=== PATIENT | female | born 1960 | race Caucasian/White ===

== ENCOUNTER 2018-10-20 08:14 | Outpatient (CLI) | payer BC, SELFPAY ==
[2018-10-20 09:13] LABS: HCT 42.2 % (36.0-46.0); HGB 13.7 g/dL (12.0-15.5); Mean Corp. HGB Concentration 32.5 g/dL (32.0-36.0); Mean Corpuscular Volume 86.1 fL (80-95); Mean Platelet Volume 10.7 fL (8.0-11.0); Platelet Count 253 x1000/uL (130-400); RBC Distribution Width 14.1 % (11.7-14.6); White Blood Cell Count 5.22 k/cumm (4.4-10.8)
[2018-10-20 10:08] LABS: ALT 56 U/L (12-78); AST 21 U/L (15-37); Albumin 3.8 g/dL (3.4-5.0); Alkaline Phosphatase 72 U/L (46-116); Anion Gap 8.9 mmol/L (3-11); BUN 18 mg/dL (7-18); Bilirubin, Total 0.3 mg/dL (0.2-1.0); CO2 27.1 mmol/L (21.0-32.0); Calcium 9.1 mg/dL (8.5-10.1); Calculated LDL 203; Chloride 106 mmol/L (98-107); Cholesterol 281 mg/dL (50-200); Glucose 103 mg/dL (70-100); HDL Cholesterol 47 mg/dL (40-60); Potassium 4.4 mmol/L (3.5-5.1); Sodium 142 mmol/L (136-145); Triglyceride 157 mg/dL (30-150)
== END 2018-10-20 08:34 ==
PROVIDERS: PCP Nurse Practitioner; Visit Provider Nurse Practitioner
DX: E66.9 Obesity, unspecified (principal); E78.5 Hyperlipidemia, unspecified
CPT/HCPCS: 36415; 80053; 80061; 83721; 85027

== ENCOUNTER 2018-10-29 16:48 | Outpatient (REF) | payer BC, SELFPAY ==
--- NOTE | 2018-10-29 16:20 | ENDOMET_PTH ---
PATIENT: Marilyn Macias LOC: [facility] U#:[id number] AGE/SX: 58/F ROOM: RE10/29/[address]: Karely Moore MD : 1960 BED: DIS: 10/29/2018 SPEC #: [id number] RECD: 10/29/18 16:59 STATUS: RACHEL REQ #: [id number] CESIA: 10/29/18 16:[address]: Karely Moore DEPT: Surgical Specimen RECD BY: Aziza Webb ENTERED: 10/29/18 16:59 SP TYPE: Endomet OT DR: Saloni Michael APRN Tissues: 1 - ENDOMETRIUM BX/CURRETTE Procedures: GROSS AND MICRO LEVEL 4 Comments: [id number]
== END 2018-10-29 17:08 ==
LOC: LBN 16:48
PROVIDERS: PCP Nurse Practitioner; Visit Provider Obstetrics & Gynecology
DX: N84.0 Polyp of corpus uteri (principal); N85.8 Other specified noninflammatory disorders of uterus; N95.0 Postmenopausal bleeding
CPT/HCPCS: 88305

== ENCOUNTER 2019-01-20 11:13 | Outpatient (CLI) | payer BC, SELFPAY ==
[2019-01-20 11:51] LABS: Hemoglobin A1C 5.6 % (4.5-6.2)
[2019-01-20 12:23] LABS: HDL Cholesterol 50 mg/dL (40-60); Triglyceride 186 mg/dL (30-150)
[2019-01-20 12:38] LABS: Calculated LDL 198 mg/dL; Cholesterol 285 mg/dL (50-200)
== END 2019-01-20 11:33 ==
PROVIDERS: PCP Nurse Practitioner; Visit Provider Nurse Practitioner
DX: E78.5 Hyperlipidemia, unspecified (principal); E66.9 Obesity, unspecified
CPT/HCPCS: 36415; 80061; 83036

== ENCOUNTER 2019-12-28 02:53 | Outpatient (CLI) | payer BC, SELFPAY ==
[2019-12-28 08:22] LABS: Hemoglobin A1C 5.6 % (3.8-5.6)
[2019-12-28 09:25] LABS: ALT 36 U/L (14-59); AST 14 U/L (15-37); Albumin 4.1 g/dL (3.4-5.0); Alkaline Phosphatase 82 U/L (46-116); Anion Gap 8.5 mmol/L (3-11); BUN 17 mg/dL (7-18); Bilirubin, Total 0.5 mg/dL (0.2-1.0); CO2 28.5 mmol/L (21.0-32.0); CREATININE 0.97 mg/dL (0.55-1.02); Calcium 9.4 mg/dL (8.5-10.1); Calculated LDL 85 mg/dL (<100); Chloride 106 mmol/L (98-107); Cholesterol 164 mg/dL (<200); Estimated GFR 58.78 (mL/min/1.73m2); Glucose 105 mg/dL (74-106); HDL Cholesterol 55 mg/dL (40-60); Potassium 4.4 mmol/L (3.5-5.1); Sodium 143 mmol/L (136-145); Total Protein 7.3 g/dL (6.4-8.2); Triglyceride 120 mg/dL (<150)
== END 2019-12-28 03:13 ==
PROVIDERS: PCP Nurse Practitioner; Visit Provider Nurse Practitioner
DX: E11.9 Type 2 diabetes mellitus without complications (principal); E78.5 Hyperlipidemia, unspecified; R73.01 Impaired fasting glucose; E66.9 Obesity, unspecified
CPT/HCPCS: 36415; 80053; 80061; 83036

== ENCOUNTER 2020-04-04 00:31 | Outpatient (CLI) | payer BC, SELFPAY ==
--- NOTE | 2020-04-04 07:30 | DI.MAMMO_ITS ---
EXAM: MG MAMMO SCREENING CLINICAL HISTORY: screening,Z12.39 TECHNIQUE: Mammograms were interpreted according to the usual protocol including computer analysis w [employer] system, tomosynthesis and C-view imaging. COMPARISON: FINDINGS: The breasts are of moderate density with fairly symmetrical distribution of fibroglandular tissue. N o dominant mass or clumped microcalcification is identified in either breast. The current examinatio n is compared with previous examinations including June 2017 and there has been no gross interval change in appearance in comparison with the prior studies. IMPRESSION: No specific evidence of malignancy at this time. Routine screening examinations are suggested at yea rly intervals in this age group according to the ACS ACR guidelines. BI-RADS Category 1 - Negative Breast Density - Category B - Scattered areas of fibroglandular density
== END 2020-04-04 00:51 ==
PROVIDERS: PCP Nurse Practitioner; Visit Provider Nurse Practitioner
DX: Z12.31 Encounter for screening mammogram for malignant neoplasm of breast (principal)
CPT/HCPCS: 77063; 77067

== ENCOUNTER 2021-01-08 16:24 | Outpatient (REF) | payer BC, SELFPAY ==
--- NOTE | 2021-01-08 16:00 | PAPFT_PTH ---
PATIENT: Marilyn Macias LOC: [facility] U#:[id number] AGE/SX: 60/F ROOM: RE01/08/[address]: Saloni Michael APRN : 1960 BED: DIS: 01/08/2021 SPEC #: [id number] RECD: 01/08/21 17:41 STATUS: RACHEL KNOWLES #: [id number] CESIA: 01/08/21 16:[address]: Saloni Michael [facility]PT[facility] Cytology RECD BY: Aziza Webb Tissues: 1 - CX/ENDOCX FOR PAP SMEARS Procedures: PAP THIN PREP/UVM Screening HPV DNA PROBE Comments: [id number]
== END 2021-01-08 16:25 | disposition home or self-care (01) ==
LOC: LBN 16:24
PROVIDERS: PCP Nurse Practitioner; Visit Provider Nurse Practitioner
DX: Z12.4 Encounter for screening for malignant neoplasm of cervix (principal); Z11.51 Encounter for screening for human papillomavirus (HPV)
CPT/HCPCS: 88142; 87624

== ENCOUNTER 2021-01-15 04:39 | Outpatient (CLI) | payer BC, SELFPAY ==
[2021-01-15 08:04] LABS: Hemoglobin A1C 5.7 % (<5.7)
[2021-01-15 10:25] LABS: ALT 47 U/L (14-59); AST 23 U/L (15-37); Alkaline Phosphatase 82 U/L (46-116); Anion Gap 11.1 mmol/L (3-11); BUN 21 mg/dL (7-18); Bilirubin, Total 0.4 mg/dL (0.2-1.0); CO2 25.9 mmol/L (21.0-32.0); Calcium 9.2 mg/dL (8.5-10.1); Calculated LDL 88 mg/dL (<100); Chloride 108 mmol/L (98-107); Cholesterol 180 mg/dL (<200); Estimated GFR 56.56 (mL/min/1.73m2); Glucose 96 mg/dL (74-106); HDL Cholesterol 57 mg/dL (40-60); Potassium 4.1 mmol/L (3.5-5.1); Sodium 145 mmol/L (136-145); Total Protein 7.1 g/dL (6.4-8.2); Triglyceride 175 mg/dL (<150)
== END 2021-01-15 04:40 | disposition home or self-care (01) ==
LOC: LBO 04:40
PROVIDERS: PCP Nurse Practitioner; Visit Provider Nurse Practitioner
DX: R73.01 Impaired fasting glucose (principal); E78.5 Hyperlipidemia, unspecified
CPT/HCPCS: 36415; 80053; 80061; 83036

== ENCOUNTER 2021-04-10 00:21 | Outpatient (CLI) | payer BC, SELFPAY ==
--- NOTE | 2021-04-10 07:40 | DI.MAMMO_ITS ---
Exam(s) MAMMO SCREENING EXAM: MAMMO SCREENING CLINICAL HISTORY: screening,z12.39 TECHNIQUE: Bilateral full field digital CC and MLO mammographic images were obtained with 3D tomosyn thesis and utilizing computer aided detection (CAD). COMPARISON: Available for comparison. FINDINGS: Masses/Architectural Distortion: None seen. Microcalcifications: No suspicious pleomorphic-type are seen. Skin Thickening/Nipple Retraction: None. IMPRESSION: 1. No significant interval change with no specific features of malignancy noted. 2. Unless there is more urgent need, screening mammography is recommended, as per [employer] [place] [employer] guidelines. BI-RADS Category 1 - Negative Breast Density - Category B - Scattered areas of fibroglandular density Breast density category C or D implies that the patient has dense breast tissue. Dense breast tissue is very common and is not abnormal but dense breast tissue can make it harder to find cancer on a ma mmogram. Also, dense breast tissue may increase their breast cancer risk. This information about the result of the mammogram report was provided to the patient to raise their awareness. Use this report when you speak with the patient about their risks for breast cancer, which includes their family hist ory. At that time, you may recommend for more screening tests (Ultrasound or MRI) as they might be us eful based on their risk. A negative radiographic report should not delay biopsy if a dominant or clinically suspicious mass is present. Up to ten percent of cancers are not identified on mammography. A negative report may reinforce clinical impression. Adenosis and dense breasts may obscure an underlying neoplasm. False positive reports average 6 to 10%. Patient will receive a letter notifying them of these results.
== END 2021-04-10 00:41 ==
PROVIDERS: PCP Nurse Practitioner; Visit Provider Nurse Practitioner
DX: Z12.31 Encounter for screening mammogram for malignant neoplasm of breast (principal)
CPT/HCPCS: 77063; 77067

== ENCOUNTER 2022-01-24 01:52 | Outpatient (CLI) | payer BC, SELFPAY ==
[2022-01-24 08:45] LABS: ALT 31 U/L (14-59); AST 13 U/L (15-37); Albumin 3.8 g/dL (3.4-5.0); Alkaline Phosphatase 86 U/L (46-116); Anion Gap 8.7 mmol/L (3-11); BUN 18 mg/dL (7-18); Bilirubin, Total 0.3 mg/dL (0.2-1.0); CO2 29.3 mmol/L (21.0-32.0); Calcium 9.5 mg/dL (8.5-10.1); Calculated LDL 80 mg/dL (<100); Chloride 105 mmol/L (98-107); Cholesterol 150 mg/dL (<200); Estimated GFR 64.09 (mL/min/1.73m2); Glucose 108 mg/dL (74-106); HDL Cholesterol 49 mg/dL (40-60); Sodium 143 mmol/L (136-145); Total Protein 7.7 g/dL (6.4-8.2); Triglyceride 107 mg/dL (<150)
== END 2022-01-24 01:53 | disposition home or self-care (01) ==
PROVIDERS: PCP Nurse Practitioner; Visit Provider Nurse Practitioner
DX: E78.5 Hyperlipidemia, unspecified (principal)
CPT/HCPCS: 36415; 80053; 80061

== ENCOUNTER 2022-03-10 20:49 | Emergency (ER) | payer BC, SELFPAY ==
--- NOTE | 2022-03-10 21:15 | DI.CT_ITS ---
Exam(s) CT ABDOMEN PELVIS W EXAM: CT ABDOMEN PELVIS W CLINICAL HISTORY: epigastric pain and discomfort. TECHNIQUE: Imaging Protocol: Axial computed tomography images with coronal and sagittal reformatted images were created and reviewed CONTRAST MATERIAL: Intravenous: Omnipaque 100cc Oral: None COMPARISON: No exams were available for comparison FINDINGS: VISUALIZED LUNG BASES: No nodules nor pleural effusions evident. ABDOMEN: There is no ascites. LIVER: There is a small 5 millimeter hypodensity in the right hepatic lobe which is probably a benign cyst or hemangioma. Another similar finding is seen in the left lobe. There are no ominous hepatic lesions identified. GALLBLADDER/BILIARY: No obvious gallbladder pathology. CBD is not dilated. PANCREAS: No evidence of pancreatic mass nor dilatation of the pancreatic duct. SPLEEN: Spleen is not enlarged. No obvious intrasplenic lesions. Splenic and portal veins are paten t. ADRENALS: There are no significant adrenal masses. KIDNEYS:No cysts evident. No solid renal masses. No calculi nor hydronephrosis.. ABDOMINAL AORTA: Abdominal aorta is not enlarged. LYMPH NODES:There is no retroperitoneal nor paraaortic adenopathy. ABDOMINAL WALL: No evidence of significant anterior abdominal wall nor inguinal hernia. GI: There is no evidence of bowel obstruction, free air, nor abscess. PELVIS: GI: No evidence of appendicitis.Sigmoid diverticulosis. No obvious acute diverticulitis. No free fl uid. LYMPH NODES: There is no intrapelvic nor inguinal adenopathy. REPRODUCTIVE: Multiple calcified uterine fibroids noted. The largest of these is located in the ante rior myometrium and measures approximately 4 by 3 by 4 cm. This indents the urinary bladder. No obv ious ovarian masses evident. There is no free fluid in the pelvis. URINARY BLADDER: No calculi nor obvious masses evident OSSEOUS: No significant osseous lesions. IMPRESSION: 1. No acute findings in the abdomen and pelvis. 2. Sigmoid diverticulosis without evidence of obvious acute diverticulitis. 3. There are multiple partially calcified uterine fibroids. The largest measures 4 x 3 x 4 cm. Ther e are no abnormal adnexal masses. No free fluid. 4. Two small benign-appearing hypodensities in the liver both measuring less than 1 cm and most proba suman representing benign cysts or hemangiomas. RADIATION DOSE DELIVERED: Total DLP DATA REPOSITORY: All CT scans at this facility are submitted to the National Radiology Data Registry (NRDR) Dose Index Registry (DIR) with the [employer] (ACR). RADIATION OPTIMIZATION: All CT scans at this facility use at least one of these dose optimization te chniques: automated exposure control; mA and/or kV adjustment per patient size (includes targeted exa ms where dose is matched to clinical indication); or iterative reconstruction.
--- NOTE | 2022-03-10 21:15 | RT.EKG_ITS ---
APPROVED REPORT Exam: Resting ECG Reason for Exam: chest pain Patient Location: E HR:72 bpm ECG Measurements Heart Rate 72 AXIS DC 151 P 61 QRSd 105 QRS 63 QT 421 T 31 QTc 459 Conclusion Sinus rhythm...normal P axis, V-rate 60- 99 Physician: Sinus rhythm, rate 72, no significant ST elevation or depression. No STEMI.
--- NOTE | 2022-03-10 21:19 | W.ED.GENAD ---
Discharge Plan Disposition Patient Disposition: STILL A PATIENT Condition: Good Discharge Details Chief Complaint: Abd Prob Clinical Impression: Acute epigastric pain Primary Care Provider: Saloni Michael ED Provider: Unruly Jimenez Home Meds and New Rx's Prescriptions: No Action atorvastatin 20 mg tablet 20 mg PO QHS Qty: 90 3RF omeprazole 20 mg tablet,delayed release (DR/EC) 20 mg PO q other day Qty: 45 3RF scopolamine base [Transderm-Scop] 1 mg over 3 days patch 3 day 1 patch TD Q3D PRN (Reason: motion sickness) Qty: 4 0RF calcium carbonate-vitamin D3 [Calcium 500 With D] 1 EACH tablet 1 ea PO DAILY Medical Decision Making 62-year-old female with a past medical history of high cholesterol, obesity, postmenopausal bleeding, presents today for evaluation of epigastric pain. Patient states that at 2 PM this afternoon she had epigastric achiness and discomfort with associated nausea. The pain comes and goes in severity, at its worst is sharp and stabbing and then it becomes mildly achy. She does have reflux, and states that this feels different. She does admit to some mild lower chest tightness with the pain. She denies any diarrhea. She did have some pizza leftovers, itself members but did not have any significant abnormality or problems after this. No other complaints at this time. She does have a history of previous right upper quadrant pain and also states that this is notably different than that. Physical exam demonstrates well-appearing female, mild epigastric achiness. EKG shows no evidence of STEMI. Symptoms concerning for pancreatitis, gastric irritation, gallbladder pathology, or potential less likely cardiac etiology. Symptoms appear clinically inconsistent with dissection or AAA. We will get a CT scan, gently rehydrate, treat the patient's pain, monitor closely and reassess. Patient will be signed out to my colleague Dr. Luis Daniel Solis for follow-up on labs and imaging. EKG 21: 27 Sinus rhythm, rate 72, no significant ST elevation or depression. No STEMI. HPI General Date/Time Provider Initiated Documentation: 03/10/22 21:07. HPI Narrative: 62-year-old female with a past medical history of high cholesterol, obesity, postmenopausal bleeding, presents today for evaluation of epigastric pain. Patient states that at 2 PM this afternoon she had epigastric achiness and discomfort with associated nausea. The pain comes and goes in severity, at its worst is sharp and stabbing and then it becomes mildly achy. She does have reflux, and states that this feels different. She does admit to some mild lower chest tightness with the pain. She denies any diarrhea. She did have some pizza leftovers, itself members but did not have any significant abnormality or problems after this. No other complaints at this time. She does have a history of previous right upper quadrant pain and also states that this is notably different than that. Related Data Home Medications Medication Instructions Recorded Confirmed calcium carbonate 500 mg-vitamin 1 ea PO DAILY 01/23/17 03/10/22 D3 10 mcg (400 unit) tablet (Calcium 500 With D) scopolamine base 1 mg over 3 days 1 patch transdermal Q3D PRN motion 04/29/19 03/10/22 transdermal patch (Transderm-Scop) sickness #4 ea atorvastatin 20 mg tablet 20 mg PO QHS #90 tabs 01/16/22 03/10/22 omeprazole 20 mg tablet,delayed 20 mg PO q other day #45 tab-caps 01/16/22 03/10/22 release Previous Rx's Medication Instructions Recorded scopolamine base 1 mg over 3 days 1 patch transdermal Q3D PRN motion 04/29/19 transdermal patch (Transderm-Scop) sickness #4 ea atorvastatin 20 mg tablet 20 mg PO QHS #90 tabs 01/16/22 omeprazole 20 mg tablet,delayed 20 mg PO q other day #45 tab-caps 01/16/22 release Allergies Allergy/AdvReac Type Severity Reaction Status Date / Time shellfish derived Allergy Mild Verified 03/10/22 21:31 Review of Systems All systems reviewed & are unremarkable except as noted in HPI and below PFSH All Active Problems (Updated 03/10/22 @ 22:27 by Unruly Jimenez DO) Acute epigastric pain (Acute) Routine gynecological examination (Acute) Routine general medical examination at a health care facility (Acute) IFG (impaired fasting glucose) (Acute) Hyperlipidemia (Acute) Postmenopausal bleeding (Acute) Counseling on health promotion and disease prevention (Acute) Obesity (Chronic) Seborrheic keratoses (Chronic) Surgical History Colonoscopy w/ BX (11/12/16) EGD w/ bx (08/18/16) Ligation of fallopian tube Family History Mother Essential hypertension High cholesterol Stroke Maternal Grandmother Neoplasm GI Father , cirrhosis at age 52. No problems noted. Social History Smoking/Tobacco Use Status: Former Tobacco Use tobacco type: cigarettes Quit Date: 09/09/07 Pack-years: 33 Tobacco: How many years used: 33 Smoking risk assessment performed?: Yes Alcohol Intake: current Alcohol Intake frequency: holidays/special occasions only Drug use: Never Substance use type: does not use Adopted: No Caregiver/Support person: No Foster care: No Household members: spouse Housing: house Number of Children: 2 number of grandchildren: 8 Communication Needs: Corrective Lenses Education Level: college Do you need help understanding health information?: Never current occupation: associate quality engineer Pets and animals: Yes Pets and animals: cat(s) and dog(s) Sexually active: Yes Do you think of yourself as: straight/heterosexual Current gender identity: female What is your relationship status?: How often do you talk on the phone with friends or family?: three or more times per week How often do you get together with friends or relatives?: once per week Do you belong to any clubs or organized social groups?: no Panel score (0-1 are the most socially isolated patients): 2 What type of physical activity do you participate in: walking, regular exercise and additional Details: elliptical Duration: 15-30 minutes/day Frequency: 3-4 times per week Hannah/Hinduism: Voodoo Special hannah needs: No Seatbelt use: always Helmet use: Yes Drive intox or ride w/intox chuck wagon driver: No Working smoke detector in home: Yes Fire extinguisher in home: Yes Carbon monox detector in home: No Do you feel safe at home: Yes Do you feel safe in your relationship?: Yes Exam Narrative Exam Narrative: 1.Const: Well-nourished, Well-developed, appearing stated age 2.Eyes: PERRL, no conjunctival injection, and symmetrical lids. 3.ENT: Atraumatic external nose and ears. Moist MM. Neck: Symmetric, trachea midline, No thyromegaly. 4.CVS: +S1/S2, No murmurs or gallops. Peripheral pulses 2+ and equal in all extremities. Brisk capillary refill in all extremities. 5.RESP: Unlabored respiratory effort. Clear to auscultation bilaterally. No wheezes rales or rhonchi 6.GI: Soft,Nondistended, No hepatosplenomegaly. No guarding or rebound. Mild epigastric tenderness. No pain at McBurney's point. Negative Coronado sign. 7.MSK: Normocephalic/Atraumatic, Extremities w/o deformity or ttp No cyanosis or clubbing, Normal movement of all extremities 8.Skin: Warm, Dry. No rashes or lesions. 9.Neuro: armorer technician II-XII grossly intact. Sensation grossly intact, no focal neurologic deficits. 10.Psych: (AAO) x3. Appropriate mood and affect
[2022-03-10 21:29] VITALS: BP 146/61; PULSE 70; RESP 22; TEMP 37; O2SAT 98
[2022-03-10 21:56] LABS: Abs Immature Grans 0.03 10^3/uL (0.0-0.06); Absolute Basophil Count 0.05 10^3/uL (0.0-0.2); Absolute Eosinophil Count 0.06 10^3/uL (0.0-0.7); Absolute Monocyte Count 0.86 10^3/uL (0.1-0.8); Absolute Neutrophil Count 8.02 10^3/uL (1.2-6.7); Basophils % 0.4; Eosinophils % 0.5; HCT 41.4 % (36.0-46.0); HGB 13.3 g/dL (11.2-15.7); Immature Grans % 0.3; Lymphocytes % 21.2; MCH 27.9 pg (27.0-33.0); MCHC 32.1 % (32.0-36.0); MCV 87 fL (80-95); MPV 10.2 fL (8.0-11.0); Monocytes % 7.5; Neutrophils % 70.1; Platelet Count 226 10^3/uL (130-400); RBC 4.77 10^6/uL (3.93-5.22); RDW 13.3 % (11.7-14.6); RDW-SD 42.2 fL; WBC 11.44 10^3/uL (4.4-10.8)
[2022-03-10 21:57] LABS: Absolute Lymphocyte Count 2.43 10^3/uL (1.2-3.4)
[2022-03-10 22:24] LABS: ALT 33 U/L (14-59); AST 17 U/L (15-37); Alkaline Phosphatase 80 U/L (46-116); Anion Gap 6.1 mmol/L (3-11); BUN 18 mg/dL (7-18); Bilirubin, Total 0.5 mg/dL (0.2-1.0); CO2 29.9 mmol/L (21.0-32.0); Calcium 9.3 mg/dL (8.5-10.1); Chloride 104 mmol/L (98-107); Glucose 97 mg/dL (74-106); Lipase 113 U/L (73-393); NT-proBNP 32 pg/mL (<300); Potassium 3.9 mmol/L (3.5-5.1); Sodium 140 mmol/L (136-145); Total Protein 7.7 g/dL (6.4-8.2); Troponin I < 50 ng/L (<or=60)
[2022-03-10] MEDS: Omnipaque 350 MG/ML 100 ML BTL IJ (22:46)
[2022-03-10] MEDS: Normal Saline Flush 10 ML SYR IVP (22:47)
[2022-03-10] MEDS: Normal Saline - Diluent 50 ML VIAL IV (22:57)
[2022-03-10] MEDS: Mylanta Suspension 30 ML CUP (23:16)
--- NOTE | 2022-03-10 23:23 | DI.VRAD_ITS ---
PROCEDURE INFORMATION: Exam: CT Abdomen And Pelvis With Contrast Exam date and time: 03/10/2022 10:42 PM Age: 62 years old Clinical indication: Abdominal pain; Prior surgery; Surgery date: 6+ months; Surgery type: Tubal ligation many years ago; Patient HX: Epigastric pain/discomfort, cramping, and constipation TECHNIQUE: Imaging protocol: Computed tomography of the abdomen and pelvis with contrast. Radiation optimization: All CT scans at this facility use at least one of these dose optimization techniques: automated exposure control; mA and/or kV adjustment per patient size (includes targeted exams where dose is matched to clinical indication); or iterative reconstruction. Contrast material: OMNIPAQUE 350; Contrast volume: 100 ml; Contrast route: INTRAVENOUS (IV); COMPARISON: US ABDOMEN 01/24/2022 7:13 AM FINDINGS: Diaphragm: Findings suggest a tiny sliding hiatal hernia. Liver: Findings suggest mild hepatic steatosis. Gallbladder and bile ducts: Normal. No calcified stones. No ductal dilation. Pancreas: Normal. No ductal dilation. Spleen: Normal. No splenomegaly. Adrenal glands: Normal. No mass. Kidneys and ureters: Normal. No hydronephrosis. Stomach and bowel: There is sigmoid diverticulosis without evidence for acute diverticulitis. There is no evidence of small or large bowel inflammation. There is no evidence for bowel obstruction. Appendix: No evidence of appendicitis. Intraperitoneal space: There is no evidence of free intraperitoneal fluid. There is no free intraperitoneal air. Vasculature: The aorta and iliac arteries demonstrate mild atherosclerotic calcification without aneurysm formation. Lymph nodes: Unremarkable. No enlarged lymph nodes. Urinary bladder: Unremarkable as visualized. Reproductive: There are a few partially calcified uterine lesions, the largest measuring 3.5 x 3.8 cm, suggesting subserosal fibroids. Bones/joints: There is multilevel [id number] facet arthrosis the lower lumbar spine. No acute fractures are identified. There is multilevel mild spondylosis of the lower thoracic spine. Soft tissues: Unremarkable. IMPRESSION: 1. No acute process within the abdomen or pelvis identified. 2. Sigmoid diverticulosis without evidence for acute diverticulitis. 3. Uterine fibroids, as described above. Dictated and Authenticated by: Huber Chirinos MD. Ordering:VERNON Tolliver MD
[2022-03-11 00:28] LABS: Troponin I < 50 ng/L (<or=60)
--- NOTE | 2022-03-11 00:31 | W.EDPROG ---
Date of service: 03/11/22 Time of Service: 00:31 Medical Decision Making Received signout from Dr. Jimenez. Please see his note regarding details of initial presentation, exam and plan of care. Patient improved following medications. Her CT scan was unremarkable. She was observed and repeat troponin obtained and negative. Will increase the patient's antacid regimen at home. She is stable and improved at this time. Sign Out Sign Out Data: Sign Out Comment: Epigastric pain and chest tightness. Follow-up on repeat troponin, CT scan and reassessment Last updated by Unruly Jimenez DO at 03/10/22 22:28 Discharge Plan Disposition Patient Disposition: HOME Condition: Good Discharge Details Clinical Impression: Acute epigastric pain Primary Care Provider: Saloni Michael ED Provider: Luis Daniel Solis Home Meds and New Rx's Prescriptions: Continued atorvastatin 20 mg tablet 20 mg PO QHS Qty: 90 3RF omeprazole 20 mg tablet,delayed release (DR/EC) 20 mg PO q other day Qty: 45 3RF scopolamine base [Transderm-Scop] 1 mg over 3 days patch 3 day 1 patch TD Q3D PRN (Reason: motion sickness) Qty: 4 0RF calcium carbonate-vitamin D3 [Calcium 500 With D] 1 EACH tablet 1 ea PO DAILY Discharge Instructions Instructions: Abdominal Pain (ED) Additional Instructions: Please take your omeprazole once daily for the next 7 to 10 days time and then return to every other day dosing. May add daily Tums or Mylanta for 1 week. These can turn the stool black at times. Home to rest this evening. Continue all routine medications. Return to the ER for any acute concern.
[2022-03-11 00:41] VITALS: BP 141/79; PULSE 91; RESP 20; O2SAT 98
== END 2022-03-11 00:42 | disposition home or self-care (01) ==
PROVIDERS: Student in an Organized Health Care Education/Training Program; Emergency Provider Emergency Medicine; PCP Nurse Practitioner
DX: R10.13 Epigastric pain (principal); R07.9 Chest pain, unspecified; R11.0 Nausea
CPT/HCPCS: 80053; 83690; 93005; 99285; 74177; 83880; 84484; 85025; 93010; 99284; J3490

== ENCOUNTER → 2023-02-06 02:22 | Outpatient (CLI) | payer BC, SELFPAY ==
--- NOTE | 2023-02-06 06:45 | DI.CTLCSR_ITS ---
Exam(s) CT CHEST LUNG CANCER SCREEN EXAM: CT CHEST LUNG CANCER SCREEN CLINICAL HISTORY: Screening for lung cancer,former smoker, z87.891 TECHNIQUE: Imaging Protocol: Axial computed tomography images with coronal and sagittal reformatted images were created and reviewed COMPARISON: CT CT CHEST LUNG CANCER SCREEN from 01/24/2022 FINDINGS: Tracheobronchial tree: Patent where visualized. Pulmonary parenchyma: No consolidation or dominant measurable mass. No architectural distortion. Lung Nodules: There is a stable 4 mm nodule in the periphery of the right lower lobe. It is pleural based. No new pulmonary nodules are present. Mediastinum and Michela: No dominant adenopathy or fluid collection. The esophagus is unremarkable. Thyroid gland: Unremarkable. Lymph nodes: Unremarkable. Pleura: No effusion or pneumothorax. Heart: The heart is not dilated. No coronary artery calcifications are seen. No pericardial effusion . Aorta: Thoracic aorta non-dilated.Mild atherosclerosis. Upper abdomen: There is fatty infiltration of the liver. Soft Tissues: Unremarkable. Bones: Within normal limits. IMPRESSION: Stable right lower lobe pulmonary nodule. Lung RADS Cat 2 - Benign Appearance / Behavior: Nodules with a very low likelihood of becoming a clin ically active cancer due to size or lack of growth Lung-RADS 1.0 CATEGORIES: Category 0 - Prior chest CT exam(s) being located for comparison. Category 1 - Annual screening in 12 months. No nodules or definitely benign nodules. Category 2 - Annual screening in 12 months. Benign appearance. Nodules with low likelihood of becomin g active cancer. Category 3 - 6-month follow-up. Probably benign. Short-term follow-up suggested. Nodules with low lik elihood of becoming active cancer. Category 4A - 3-month follow-up and CT/PET if >8 mm in size. Suspicious finding. Findings which requi re additional testing. Category 4B - Findings which require additional testing and tissue sampling. Suspicious finding. Category 4X - Category 3 or 4 nodules with additional features or imaging findings that increases the suspicion of malignancy. Modifier S- Potentially clinically significant finding. (Non lung cancer) RADIATION DOSE DELIVERED: 68.25mGy.cm Total DLP 68.25mGy.cmTotal DLP DATA REPOSITORY: All CT scans at this facility are submitted to the National Radiology Data Registry (NRDR) Dose Index Registry (DIR) with the [employer] (ACR). RADIATION OPTIMIZATION: All CT scans at this facility use at least one of these dose optimization te chniques: automated exposure control; mA and/or kV adjustment per patient size (includes targeted exa ms where dose is matched to clinical indication); or iterative reconstruction.
--- NOTE | 2023-02-06 07:50 | DI.MAMMO_ITS ---
Exam(s) MAMMO SCREENING EXAM: MAMMO SCREENING CLINICAL HISTORY: screening,z12.39 TECHNIQUE: Bilateral full field digital CC and MLO mammographic images were obtained with 3D tomosyn thesis and utilizing computer aided detection (CAD). COMPARISON: Available for comparison. FINDINGS: Masses/Architectural Distortion: There is a stable nodule in the central left breast on the CC view. No suspicious nodules or areas of architectural distortion are seen. Microcalcifications: No suspicious pleomorphic-type are seen. Skin Thickening/Nipple Retraction: None. IMPRESSION: 1. No significant interval change with no specific features of malignancy noted. 2. Unless there is more urgent need, screening mammography is recommended, as per [place] [employer] guidelines. BI-RADS Category 1 - Negative Breast Density - Category B - Scattered areas of fibroglandular density Breast density category C or D implies that the patient has dense breast tissue. Dense breast tissue is very common and is not abnormal but dense breast tissue can make it harder to find cancer on a ma mmogram. Also, dense breast tissue may increase their breast cancer risk. This information about the result of the mammogram report was provided to the patient to raise their awareness. Use this report when you speak with the patient about their risks for breast cancer, which includes their family hist ory. At that time, you may recommend for more screening tests (Ultrasound or MRI) as they might be us eful based on their risk. A negative radiographic report should not delay biopsy if a dominant or clinically suspicious mass is present. Up to ten percent of cancers are not identified on mammography. A negative report may reinforce clinical impression. Adenosis and dense breasts may obscure an underlying neoplasm. False positive reports average 6 to 10%. Patient will receive a letter notifying them of these results.
== END ==
PROVIDERS: PCP Nurse Practitioner; Visit Provider Nurse Practitioner
DX: Z12.31 Encounter for screening mammogram for malignant neoplasm of breast (principal); Z87.891 Personal history of nicotine dependence; Z12.2 Encounter for screening for malignant neoplasm of respiratory organs; R91.1 Solitary pulmonary nodule
CPT/HCPCS: 71271; 77063; 77067

== ENCOUNTER 2023-02-06 03:27 | Outpatient (CLI) | payer BC, SELFPAY ==
[2023-02-06 08:03] LABS: Abs Immature Grans 0.02 10^3/uL (0.0-0.06); Absolute Basophil Count 0.07 10^3/uL (0.0-0.2); Absolute Eosinophil Count 0.09 10^3/uL (0.0-0.7); Absolute Lymphocyte Count 2.14 10^3/uL (1.2-3.4); Absolute Monocyte Count 0.46 10^3/uL (0.1-0.8); Absolute Neutrophil Count 2.66 10^3/uL (1.2-6.7); Basophils % 1.3; Eosinophils % 1.7; HCT 41.9 % (36.0-46.0); HGB 13.3 g/dL (11.2-15.7); Immature Grans % 0.4; Lymphocytes % 39.3; MCHC 31.7 % (32.0-36.0); MCV 85 fL (80-95); MPV 9.8 fL (8.0-11.0); Monocytes % 8.5; Neutrophils % 48.8; Platelet Count 274 10^3/uL (130-400); RBC 4.93 10^6/uL (3.93-5.22); RDW 13.4 % (11.7-14.6); RDW-SD 41.6 fL; WBC 5.44 10^3/uL (4.4-10.8)
[2023-02-06 08:35] LABS: Hemoglobin A1C 5.7 % (<5.7)
[2023-02-06 09:01] LABS: ALT 49 U/L (14-59); AST 38 U/L (15-37); Alkaline Phosphatase 81 U/L (46-116); Anion Gap 7.5 mmol/L (3-11); BUN 17 mg/dL (7-18); Bilirubin, Total 0.4 mg/dL (0.2-1.0); CO2 29.5 mmol/L (21.0-32.0); Calcium 9.6 mg/dL (8.5-10.1); Calculated LDL 206 mg/dL (<100); Chloride 104 mmol/L (98-107); Cholesterol 287 mg/dL (<200); Glucose 109 mg/dL (74-106); HDL Cholesterol 50 mg/dL (40-60); Sodium 141 mmol/L (136-145); Triglyceride 155 mg/dL (<150)
== END 2023-02-06 03:28 | disposition home or self-care (01) ==
LOC: LBO 03:27
PROVIDERS: PCP Nurse Practitioner; Visit Provider Nurse Practitioner
DX: E78.5 Hyperlipidemia, unspecified (principal); R73.01 Impaired fasting glucose
CPT/HCPCS: 36415; 80053; 80061; 83036; 85025

== ENCOUNTER 2023-04-16 04:32 | Outpatient (CLI) | payer BC, SELFPAY ==
[2023-04-16 13:37] LABS: TSH (W/Ref FT4) 2.22 uIU/mL (0.36-3.74)
== END 2023-04-16 04:33 | disposition home or self-care (01) ==
LOC: LBO 04:32
PROVIDERS: PCP Nurse Practitioner; Referring Provider Nurse Practitioner; Visit Provider Nurse Practitioner
DX: E66.9 Obesity, unspecified (principal); Z83.49 Family history of other endocrine, nutritional and metabolic diseases
CPT/HCPCS: 36415; 84443

== ENCOUNTER 2023-08-11 04:55 | Outpatient (CLI) | payer BC, SELFPAY ==
[2023-08-11 08:44] LABS: Calculated LDL 87 mg/dL (<100); Cholesterol 173 mg/dL (<200); HDL Cholesterol 54 mg/dL (40-60); Triglyceride 164 mg/dL (<150)
== END 2023-08-11 04:56 | disposition home or self-care (01) ==
LOC: LBO 04:55
PROVIDERS: PCP Nurse Practitioner; Referring Provider Nurse Practitioner; Visit Provider Nurse Practitioner
DX: E78.5 Hyperlipidemia, unspecified (principal)
CPT/HCPCS: 36415; 80061

== ENCOUNTER 2024-06-22 09:27 | Outpatient (CLI) | payer BC, SELFPAY ==
--- NOTE | 2024-06-22 09:31 | DI.RAD_ITS ---
Exam(s) XR SHOULDER RT COMPLETE 2+V EXAM: XR SHOULDER RT COMPLETE 2+V CLINICAL HISTORY: Rt shoulder pain since fall in April, M25.511, W19.XXXA. TECHNIQUE: 2D digital imaging was performed. COMPARISON: No exams were available for comparison FINDINGS: Five views. No evidence of fracture or dislocation. However, there is a small 3-4 millimeter calcific density in the lateral subacromial space consistent with calcific tendinitis. No obvious degenerative changes in the glenohumeral joint. Mild-moderate degenerative changes are no marbin in the AC joint. Bone density normal. No osseous lesions. IMPRESSION: Small soft tissue calcification in the lateral subacromial space consistent with calcific rotator cuf f tendinitis. DATA REPOSITORY: RADIATION DOSE DELIVERED:
== END 2024-06-22 09:47 ==
LOC: DI 09:28
PROVIDERS: PCP Nurse Practitioner; Visit Provider Nurse Practitioner
DX: M25.511 Pain in right shoulder (principal); W19.XXXA Unspecified fall, initial encounter; M75.31 Calcific tendinitis of right shoulder
CPT/HCPCS: 73030

== ENCOUNTER 2024-06-29 02:23 | Outpatient (CLI) | payer BC, SELFPAY ==
[2024-06-29 07:52] LABS: ALT 29 U/L (14-59); AST 18 U/L (15-37); Albumin 3.8 g/dL (3.4-5.0); Alkaline Phosphatase 77 U/L (46-116); Anion Gap 7.9 mmol/L (3-11); BUN 19 mg/dL (7-18); Bilirubin, Total 0.38 mg/dL (0.2-1.0); CO2 28.1 mmol/L (21.0-32.0); CREATININE 1.1 mg/dL (0.55-1.02); Calcium 9.3 mg/dL (8.5-10.1); Calculated LDL 109 mg/dL (<100); Chloride 110 mmol/L (98-107); Cholesterol 196 mg/dL (<200); Estimated GFR 56.11 (mL/min/1.73m2); Glucose 101 mg/dL (74-106); HDL Cholesterol 63 mg/dL (40-60); Potassium 4.2 mmol/L (3.5-5.1); Sodium 146 mmol/L (136-145); Total Protein 7.2 g/dL (6.4-8.2); Triglyceride 124 mg/dL (<150)
== END 2024-06-29 02:24 | disposition home or self-care (01) ==
LOC: LBO 02:23
PROVIDERS: PCP Nurse Practitioner Family; Visit Provider Nurse Practitioner
DX: E78.5 Hyperlipidemia, unspecified (principal); R73.03 Prediabetes
CPT/HCPCS: 36415; 80053; 80061

== ENCOUNTER → 2025-04-19 00:13 | Outpatient (CLI) | payer BC, SELFPAY ==
--- NOTE | 2025-04-19 12:53 | DI.MAMMO_ITS ---
Exam(s) MAMMO SCREENING EXAM: MAMMO SCREENING CLINICAL HISTORY: SCREENING, Z12.31. TECHNIQUE: Bilateral full field digital CC and MLO mammographic images were obtained with 3D tomosynthesis and utilizing computer aided detection (CAD). COMPARISON: Prior mammograms were reviewed. FINDINGS: There has been no significant change in the appearance and distribution of the fibroglandular tissue. There are no CAD designations. No new right breast findings. In the left breast there is a small nodular density lobe located approximately 6 o'clock position, 4 cm in from the nipple on the CC view and measuring approximately 5 x 3 mm. Spot compression view recommended. There are no malignant-appearing microcalcification groups is region or elsewhere in either breast. There is no significant architectural distortion nor skin thickening-retraction. IMPRESSION: 1. No radiographic evidence of malignancy in the right breast. 2. Small left breast nodule as described above. Spot compression view and ultrasound are recommended. BI-RADS Category 0 - Incomplete: Need additional imaging evaluation Breast Density - Category B - There are scattered areas of fibroglandular density. Breast density Category C or D implies that the patient has dense breast tissue. Dense breast tissue can make it harder to find cancer on a mammogram. Dense breast tissue is also associated with an increased risk of breast cancer. This information about the result of the mammogram report was provided to the patient to raise their awareness. Use this report when you speak with the patient about their risks for breast cancer, which includes their family history. At that time, you may recommend additional screening tests (Ultrasound or MRI) as these tests may add significant information. A negative radiographic report should not delay biopsy if a dominant or clinically suspicious mass is present. Up to ten percent of cancers are not identified on mammography. A negative report may reinforce clinical impression. Adenosis and dense breasts may obscure an underlying neoplasm. False positive reports average 6 to 10%. Patient will receive a letter notifying them of these results.
== END ==
LOC: DI 00:13
PROVIDERS: Visit Provider Nurse Practitioner Family
DX: Z12.31 Encounter for screening mammogram for malignant neoplasm of breast (principal); R92.323 Mammographic fibroglandular density, bilateral breasts
CPT/HCPCS: 77063; 77067

== ENCOUNTER 2025-04-19 14:07 | Outpatient (CLI) | payer BC, SELFPAY ==
[2025-04-19 17:01] LABS: Hemoglobin A1C 5.3 % (<5.7)
[2025-04-19 17:07] LABS: Cholesterol 187 mg/dL (<200); HDL Cholesterol 56 mg/dL (>40)
== END 2025-04-19 14:08 | disposition home or self-care (01) ==
LOC: LBO 14:08
PROVIDERS: Visit Provider Nurse Practitioner Family
DX: R73.03 Prediabetes (principal); E66.9 Obesity, unspecified
CPT/HCPCS: 36415; 80061; 83036

== ENCOUNTER → 2025-04-27 00:18 | Outpatient (CLI) | payer BC, SELFPAY ==
--- NOTE | 2025-04-27 | DI.US_ITS ---
Exam(s) MG MAMMO SCREEN CALL BACK UNI US BREAST LT LIMITED EXAM: MG MAMMO SCREEN CALL BACK UNI and U/S breast LT limited CLINICAL HISTORY: F/U ABNL MAMMO, SMALL LT BREAST NODULE. TECHNIQUE: Craniocaudal and mediolateral oblique spot compression digital Mammography views of the left breast with Computer Aided Diagnosis followed by Tomosynthesis and limited left breast ultrasound. COMPARISON: Comparison is made with prior examinations. FINDINGS: Mammography/Tomosynthesis: Masses/Architectural Distortion: There is again seen a well-circumscribed 5-6 mm nodule in the retroareolar region of the left breast. This nodule is unchanged compared to examinations dating back to 2020. No area of architectural distortion is seen. Microcalcifictions: No suspicious pleomorphic-type are seen. Skin Thickening/Nipple Retraction: None. Limited left breast US: Echotexture: Normal appearance of the glandular tissue. Shadowing: No suspicious foci. Cyst: There is a 0.6 cm cyst at the 6 o'clock position of the left breast 2 cm from the nipple. This would appear to correspond to the mammographic abnormality. Solid lesions: None seen. Ductal dilation: None. IMPRESSION: 1. No evidence of malignancy is noted. 2. Unless there is more urgent need, follow-up screening mammography is recommended, as per [employer] guidelines. 3. The findings were discussed with the patient on the date of the examination. BI-RADS Category 2 - Benign Findings Breast Density - Category B - There are scattered areas of fibroglandular density. Breast density Category C or D implies that the patient has dense breast tissue. Dense breast tissue can make it harder to find cancer on a mammogram. Dense breast tissue is also associated with an increased risk of breast cancer. This information about the result of the mammogram report was provided to the patient to raise their awareness. Use this report when you speak with the patient about their risks for breast cancer, which includes their family history. At that time, you may recommend additional screening tests (Ultrasound or MRI) as these tests may add significant information. A negative radiographic report should not delay biopsy if a dominant or clinically suspicious mass is present. Up to ten percent of cancers are not identified on mammography. A negative report may reinforce clinical impression. Adenosis and dense breasts may obscure an underlying neoplasm. False positive reports average 6 to 10%. Patient will receive a letter notifying them of these results.
== END ==
LOC: DI 00:18
PROVIDERS: Visit Provider Nurse Practitioner Family
DX: Z12.31 Encounter for screening mammogram for malignant neoplasm of breast (principal)
CPT/HCPCS: 76642; 77063; 77067